=== PATIENT | female | born 1980 | race Caucasian/White ===

== ENCOUNTER 2017-02-20 21:26 | Emergency (ER) | payer BC, OTHER ==
[~2017-02-20] VITALS: Ht 167.6 cm; Wt 69.0 kg
[~2017-02-20 21:26] MED LIST: DICL75 PO; MIREIUD IU
[2017-02-20 21:30] VITALS: BP 131/83; PULSE 98; RESP 20; TEMP 98.3
[2017-02-20] MEDS ORDERED: CLIN1CAP6 PO (21:57)
--- NOTE | 2017-02-20 21:58 | PD ---
HPI Chief Complaint: Bite or Sting Time Seen by Provider: 21:37 Travel History International Travel<30 days: No Contact w/Intl Traveler<30days: No Traveled to known affect area: No History of Present Illness HPI This is a 36-year-old female who presents to the emergency department with 2 days of swelling involving her left elbow spreading to involve her forearm and her left upper arm associated with itching, burning, and moderate severity pain. She thinks she was bit by something at work yesterday. She denies any fevers or chills. She says she's had reactions like this before and cortisone has helped her. [facility] Past Medical History Medical History: Denies Significant Hx Hx Anticoagulant Therapy: No Cardiovascular Problems: No Chemotherapy: No Cerebrovascular Accident: No Diabetes: No Diminished Hearing: No Genitourinary: Yes (KIDNEY INFECTIONS) Respiratory: No LMP: 2007 : 3 Para: 2 : 1 Past Surgical History Hysterectomy: No Oral Surgery: Yes (WISDOM TEETH REMOVED) Social History Alcohol Use: Yes (SOCIALLY) Tobacco Use: Yes (1 PPD) Substance Use: No Allergies-Medications (Allergen,Severity, Reaction): Coded Allergies: azithromycin (Unverified Allergy, Severe, HIVES, 02/20/17) penicillin G (Unverified Allergy, Severe, HIVES, 02/20/17) Uncoded Allergies: BIRTHCONTROL PATCH (Allergy, Severe, HIVES, 03/17/10) CONTROL PILL (Allergy, Mild, HIVES, 11/25/13) Reported Meds & Prescriptions Reported Meds & Active Scripts Active No Active Prescriptions or Reported Medications Review of Systems Except as stated in HPI: all other systems reviewed are Neg Physical Exam Narrative GENERAL:Well appearing, no acute distress SKIN: Focused 3 cm area of erythema with a central raised pustule overlying the left elbow, no fluctuance or induration, erythema extends up the left forearm and up the left proximal arm mostly on the dorsal aspect of the arm HEAD: Atraumatic. Normocephalic. EYES: Pupils equal and round. No injection or drainage. ENT: Moist mucous membranes NECK: Trachea midline. CARDIOVASCULAR: Regular rate and rhythm. No murmur appreciated. 2+ left radial pulse with normal capillary refill. RESPIRATORY: Clear to auscultation. Breath sounds equal bilaterally. GASTROINTESTINAL: Abdomen soft, non-tender, nondistended. MUSCULOSKELETAL: No obvious deformities. NEUROLOGICAL: Awake and alert. No obvious cranial nerve deficits. Moving all extremities. PSYCHIATRIC: Appropriate mood and affect; insight and judgment normal. Data Data Last Documented VS Vital Signs Date Time Temp Pulse Resp B/P (MAP) Pulse Ox O2 Delivery O2 Flow Rate FiO2 02/20/17 21:30 98.3 98 20 131/83 (99) Orders Orders Methylprednisolone So Succ Inj (Solumedr (02/20/17 22:00) Clindamycin (Cleocin) (02/20/17 22:00) Tetanus/Diphtheria Tox Adult (Tetanus/Di (02/20/17 22:00) MDM Medical Decision Making Medical Screen Exam Complete: Yes Emergency Medical Condition: Yes Differential Diagnosis Allergic reaction, cellulitis, abscess, sepsis, bursitis Narrative Course This is a 36-year-old female who presents to the emergency department with swelling and redness of her left elbow that has been extending to involve her upper and lower arm. She describes that is itchy. It's erythematous on exam with no obvious fluctuance or fluid collection. There is no obvious inflammation of the bursa. She is afebrile and nontoxic appearing. She says that this is happened to her in the past and cortisone injections have helped her. I think it's reasonable to give her a dose of methylprednisolone here in the emergency department however I think predominantly this appears to be a cellulitis and I think she would benefit from outpatient antibiotics. Patient was discharged with clindamycin and advised to continue taking Benadryl for itching. Diagnosis Primary Impression: Cellulitis Qualified Codes: L03.114 - Cellulitis of left upper limb Patient Instructions: General Instructions Additional Instructions: If you develop fever, increasing redness, warmth, or spreading of your infection , or severe pain return to the emergency department immediately as you may require antibiotics through your IV. Complete your course of antibiotics as prescribed. Med/Other Pt SpecificInfo: Prescription(s) given Scripts Clindamycin (Clindamycin) 300 Mg Cap 300 MG PO Q6H for Infection for 10 Days, #40 CAP 0 Refills Prov: Jami Simpson MD 02/20/17 Disposition: 01 DISCHARGE HOME Condition: Stable Jami Simpson MD Feb 20, 2017 21:57
[2017-02-20] MEDS ORDERED: CLINDAMYCIN 150 MG CAP PO ONE (22:00)
[2017-02-20] MEDS ORDERED: TETANUS/DIPHTHERIA TOXOID ADULT 0.5 ML VIAL IM ONE (22:00)
[2017-02-20] MEDS ORDERED: methylPREDNISolone SOD SUCC 125 MG/2 ML VIAL IM ONE (22:00)
[2017-02-20 22:33] VITALS: BP 136/82; TEMP 98.2
== END 2017-02-20 22:34 | disposition home or self-care (01) ==
LOC: PHED 21:26
DX: L03.114 Cellulitis of left upper limb (principal); F17.210 Nicotine dependence, cigarettes, uncomplicated; Z23 Encounter for immunization
CPT/HCPCS: 90471; 90714; 96372; 99284; J2930